=== PATIENT | male | born 1990 | race Caucasian/White ===

== ENCOUNTER 2022-06-10 05:22 | Emergency (ER) | payer OTHER ==
[2022-06-10 07:28] LABS: BASOPHIL 0.6 % (0-2); EOSINOPHIL 0.5 % (0-5); HCT 42.4 % (42.0-52.0); HGB 14.5 g/dl (13.2-18.0); LYMPHOCYTE 12.2 % (15-48); MCH 29.9 pg (25.0-31.0); MCHC 34.2 g/dL (32.0-36.0); MCV 87.4 fL (78.0-100.0); MONOCYTE 4.8 % (0-12); MPV 8.5 fL (6.0-9.5); NEUTROPHIL 81.5 % (41-80); NRBC 0; PLT 249 K/uL (150-400); RBC 4.85 M/uL (4.70-6.00)
[2022-06-10 07:43] LABS: ALBUMIN 3.9 g/dL (3.4-5.0); BILIRUBIN - TOTAL 0.5 mg/dL (0.2-1.0); BUN/CREAT RATIO (CALC) 18.8 RATIO; CREATININE 0.69 mg/dL (0.67-1.17); GLOBULIN (CALCULATION) 4.7 g/dL; POTASSIUM 4.1 mmol/L (3.5-5.1); TOTAL PROTEIN 8.6 g/dL (6.4-8.2)
[2022-06-10 07:54] LABS: LACTIC ACID 0.6 mmol/L (0.4-1.9)
[2022-06-10 08:05] LABS: CORONAVIRUS 2019 SARS-COV-2 NEGATIVE (NEGATIVE); INFLUENZA A NAA NEGATIVE (NEGATIVE)
[2022-06-10] MEDS ORDERED: AMOX TR-K CLV1 EAC4 PO (08:30)
== END 2022-06-10 08:54 | disposition home or self-care (01) ==
LOC: FER 05:22
PROVIDERS: Emergency Medicine
DX: L03.113 Cellulitis of right upper limb (principal); F17.200 Nicotine dependence, unspecified, uncomplicated; Z20.822 Contact with and (suspected) exposure to COVID-19; Z28.310 Unvaccinated for COVID-19; Z88.2 Allergy status to sulfonamides
CPT/HCPCS: 36415; 73100; 73130; 73200; 80053; 83605; 85025; 87040; 96372; J0692; J1885; J3370; J7030; J7050; U0002